=== PATIENT | female | born 1970 | race Two or more races ===

== ENCOUNTER 2016-05-27 20:49 | Emergency (ER) | payer MEDICARE, MEDICAID ==
[~2016-05-27] VITALS: Ht 162.6 cm; Wt 63.5 kg
[2016-05-27 20:59] VITALS: BP 145/89
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
[2016-05-27] MEDS ORDERED: IBUPROFEN600 MG ORAL (22:11)
[2016-05-27 22:19] VITALS: BP 145/89
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
== END 2016-05-27 22:20 | disposition home or self-care (01) ==
LOC: EDBD 20:49 → EMR 21:10
DX: S09.90XA Unspecified injury of head, initial encounter (principal); Y08.89XA Assault by other specified means, initial encounter; Y93.9 Activity, unspecified; Y92.521 Bus station as the place of occurrence of the external cause; Z86.59 Personal history of other mental and behavioral disorders; S50.812A Abrasion of left forearm, initial encounter
CPT/HCPCS: 70450; 99284